=== PATIENT | female | born 1965 | race American Indian/Alaskan Native ===

== ENCOUNTER 2019-05-05 11:15 | Emergency (ER) | payer SELFPAY ==
[2019-05-05 11:33] VITALS: BP 110/68
--- NOTE | 2019-05-05 11:50 | Emergency Department Report ---
Chief Complaint: Extremity Injury, Upper Stated Complaint: RT HAND PAIN Time Seen by Provider: 05/05/19 11:34 - HPI History of Present Illness: This is a 53-year-old female nontoxic well in appearance with no signs of distress presents to the ED for Tramadol prescription. Patient stated has carpal tunnel syndrome and burn to right arm for 40 years. Denies any new symptoms. Patient denies any new trauma. Stated has a orthopedic that she follows. Stated has only 2 tramadol medications left and is requesting for more. Denies any fever, chills, headache, nausea, vomiting, chest pain or SOB. Denies any other complaints. - Exam Vital Signs: Vital Signs 05/05/19 11:31 Temperature 97.8 F Pulse Rate 62 Respiratory 18 Rate Blood Pressure 110/68 O2 Sat by Pulse 100 Oximetry Physical Exam: Right hand within normal ROM. No cellulitis. No trauma noted. Normal inspection and exam noted to right arm. MSE screening note: Focused history and physical exam performed. Due to findings the following was ordered: ED Medical Decision Making - Medical Decision Making I will prescribed Naproxen due to it being controlled substance and patient has 2 more pills left. Patient will need follow-up with pain management for chronic pain. Patient was instructed to Follow-up with a orthopedic doctor in 3-5 days or if symptoms worsen and continue return to emergency room as soon as possible. At time of discharge, the patient does not seem toxic or ill in appearance. No acute signs of distress noted. Patient agrees to discharge treatment plan of care. No further questions noted by the patient. ED Disposition for MSE Clinical Impression: Chronic arm pain Qualifiers: Laterality: right Qualified Code(s): M79.601 - Pain in right arm; G89.29 - Other chronic pain Disposition: - TO HOME OR SELFCARE Is pt being admited?: No Does the pt Need Aspirin: No Condition: Stable Additional Instructions: Follow-up with a orthopedic doctor in 3-5 days or if symptoms worsen and continue return to emergency room as soon as possible. Prescriptions: Naproxen [Naprosyn TAB] 500 mg PO BID PRN #12 tablet PRN Reason: Pain , Severe (7-10) [facility] [Primary Care Provider] - 3-5 Days PRIMARY CAREMD [Referring] - 3-5 Days ELLIOTT CORCORAN MD [Staff Physician] - 3-5 Days
== END 2019-05-05 12:02 | disposition home or self-care (01) ==
LOC: ED 11:15
DX: M79.601 Pain in right arm (principal); G89.29 Other chronic pain
CPT/HCPCS: 99282